=== PATIENT | female | born 1990 | race Caucasian/White ===

== ENCOUNTER 2021-07-08 19:16 | Emergency (ER) | payer MEDICAID, OTHER ==
[~2021-07-08] VITALS: Ht 152.4 cm; Wt 84.4 kg
[2021-07-08 20:43] VITALS: BP 135/73
--- NOTE | 2021-07-08 20:49 | NUR ---
PT PROVIDED URINE SPECIMEN. PT AMBULATED TO LOBDEMI
--- NOTE | 2021-07-08 22:51 | NUR ---
PT TAKEN TO ULTRASOUND
[2021-07-09 00:38] LABS: BASOPHILS # (AUTO) 0.1 K/uL (0.00-0.22); BASOPHILS % (AUTO) 1.2 % (0.0-2.0); EOSINOPHILS # (AUTO) 0.6 K/uL (0-0.4); HEMATOCRIT 33.8 % (36-48); LYMPHOCYTES # (AUTO) 2.8 K/uL (2.5-16.5); LYMPHOCYTES % (AUTO) 33.8 % (20.5-51.1); MEAN CORPUSCULAR HEMOGLOBIN 26 pg (27-31); MEAN CORPUSCULAR HGB CONC 33 g/dL (33-37); MEAN CORPUSCULAR VOLUME 78.2 fL (80-94); MONOCYTES # (AUTO) 0.5 K/uL (0.8-1.0); MONOCYTES % (AUTO) 6.3 % (1.7-9.3); NEUTROPHILS # (AUTO) 4.3 K/uL (1.8-7.7); NEUTROPHILS % (AUTO) 51.7 % (42.2-75.2); PLATELET COUNT (AUTO) 327 K/uL (140-450); RED BLOOD CELL COUNT(AUTO) 4.33 MIL/uL (4.20-5.40); RED CELL DISTRIBUTION WIDTH 15.1 % (11.6-13.7); WHITE BLOOD COUNT (AUTO) 8.3 K/uL (4.8-10.8)
[2021-07-09 01:42] LABS: ALBUMIN 3.4 g/dL (3.4-5.0); ANION GAP 12.7 (8-16); CARBON DIOXIDE 28.3 mmol/L (21-32); CREATININE 0.5 mg/dL (0.6-1.3); TOTAL BILIRUBIN 0.1 mg/dL (0.0-1.0)
[2021-07-09 01:43] LABS: APPEARANCE,URINE CLOUDY (CLEAR); BILIRUBIN,URINE NEGATIVE (NEGATIVE); BLOOD, URINE TRACE-I (NEGATIVE); COLOR,URINE YELLOW (YELLOW); LEUKOCYTE ESTERASE ,URINE 2+ (NEGATIVE); NITRITE, URINE NEGATIVE (NEGATIVE); UGLUCOSE NEGATIVE (NEGATIVE)
[2021-07-09] MEDS ORDERED: IBUP-2213 PO (01:49)
[2021-07-09] MEDS ORDERED: CIPR500T4 PO (01:49)
[2021-07-09 01:54] LABS: RBC,URINE 0-5 /HPF (0-5)
--- NOTE | 2021-07-09 01:58 | NUR ---
Patient discharged with v/s stable. Written and verbal after care instructions given and explained. Patient alert, oriented and verbalized understanding of instructions. Ambulatory with steady gait. All questions addressed prior to discharge. ID band removed. Patient advised to follow up with PMD. Rx of MOTRIN AND CIPRO given. Patient educated on indication of medication including possible reaction and side effects. Opportunity to ask questions provided and answered.
== END 2021-07-09 01:58 | disposition home or self-care (01) ==
LOC: MED 19:16
DX: N39.0 Urinary tract infection, site not specified (principal); Z90.49 Acquired absence of other specified parts of digestive tract
CPT/HCPCS: 36415; 76705; 80053; 81001; 81025; 83690; 85025; 87086; 99284; Q0092

== ENCOUNTER 2022-07-16 06:25 | Emergency (ER) | payer OTHER ==
[~2022-07-16] VITALS: Ht 152.4 cm; Wt 77.1 kg
[~2022-07-16 06:25] MED LIST: CIPR500T4 PO; IBUP-2213 PO
[2022-07-16 06:31] VITALS: BP 110/77
--- NOTE | 2022-07-16 06:34 | NUR ---
TO LOBBY A/W BED AMBULATORY
[2022-07-16] MEDS ORDERED: KETOROLAC 15 MG/ML VIAL IM ONE (07:10)
[2022-07-16] MEDS ORDERED: IBUP-2213 PO (07:34)
--- NOTE | 2022-07-16 07:40 | NUR ---
31/F PRESENTS TO ED WITH C/O LEFT ANKLE PAIN SINCE WAKING UP TODAY. PATIENT DENIES RECENT INJURY OR TRAUMA. NO OBVIOUS SIGNS OF INJURY OR TRAUMA, PATIENT AMBULATORY UPON ARRIVAL
--- NOTE | 2022-07-16 08:08 | NUR ---
PT PLACED IN LEFT DAVY WRAP ON ANKLE AND GIVEN CRUTCHES. PT WAS SHOWED HOW TO USE CRUTCHES AND SHOWED PROPER DEMONSTRATION ON HOW TO USE CRUTCHES. PT HAD NO FURTHER QUESTIONS
--- NOTE | 2022-07-16 08:13 | NUR ---
Patient discharged with v/s stable. Written and verbal after care instructions ABOUT ANKLE SPRAIN given and explained. Patient alert, oriented and verbalized understanding of instructions. Ambulatory with steady gait WITH USE OF CRUTCHES. All questions addressed prior to discharge. ID band removed. Patient advised to follow up with PMD. Rx of IBUPROFEN given. Patient educated on indication of medication including possible reaction and side effects. Opportunity to ask questions provided and answered. PATIENT PROVIDED WITH WORK NOTE
== END 2022-07-16 08:13 | disposition home or self-care (01) ==
LOC: MED 06:25
DX: S93.402A Sprain of unspecified ligament of left ankle, initial encounter (principal); F10.129 Alcohol abuse with intoxication, unspecified; Y90.9 Presence of alcohol in blood, level not specified; W18.30XA Fall on same level, unspecified, initial encounter; Y93.89 Activity, other specified; Y92.89 Other specified places as the place of occurrence of the external cause; Y99.8 Other external cause status
CPT/HCPCS: 73610; 96372; 99283; J1885